=== PATIENT | female | born 1965 | race Caucasian/White ===

== ENCOUNTER → 2016-09-12 | Outpatient (CLI) | payer OTHER | LOC: KOH-I 13:04 | DX: E78.5 Hyperlipidemia, unspecified (principal); I65.23 Occlusion and stenosis of bilateral carotid arteries | CPT/HCPCS: 93880 ==

== ENCOUNTER 2020-09-17 12:34 | Inpatient (IN) | payer OTHER ==
[~2020-09-17] VITALS: Ht 162.6 cm; Wt 81.6 kg
[2020-09-17 13:20] LABS: HEMOGLOBIN 13.8 gm/dl (12.3-15.3); RED BLOOD COUNT 4.43 M/UL (4.00-5.10); WHITE BLOOD COUNT 5.8 K/UL (4.5-11.0)
[2020-09-17 13:41] LABS: BUN/CREATININE RATIO 10 (0-10)
[2020-09-17] MEDS ORDERED: GLUCOTROL5 MG PO (16:37)
[2020-09-17] MEDS ORDERED: LISINOPRIL-HCT1 EACH PO (16:38)
[2020-09-17] MEDS ORDERED: PROAIR HFA8.5 GM INH (16:39)
[2020-09-17] MEDS ORDERED: PROCTOCREAM-HC30 G1 TOP (16:41)
[2020-09-17] MEDS ORDERED: VITAMIN D3125 MCG PO (16:41)
[2020-09-17] MEDS ORDERED: HORMONE TOP (16:53)
[2020-09-17] MEDS ORDERED: LIPITOR20 MG PO (16:56)
[2020-09-18 04:07] LABS: HEMOGLOBIN 12.4 gm/dl (12.3-15.3); WHITE BLOOD COUNT 5.1 K/UL (4.5-11.0)
[2020-09-18 04:29] LABS: BUN/CREATININE RATIO 13 (0-10)
[2020-09-19 04:26] LABS: HEMOGLOBIN 11.8 gm/dl (12.3-15.3); RED BLOOD COUNT 3.81 M/UL (4.00-5.10)
[2020-09-19 04:48] LABS: BUN/CREATININE RATIO 12 (0-10)
[2020-09-19 04:53] LABS: WHITE BLOOD COUNT 3.1 K/UL (4.5-11.0)
[2020-09-20 04:11] LABS: HEMOGLOBIN 10.7 gm/dl (12.3-15.3); RED BLOOD COUNT 3.47 M/UL (4.00-5.10); WHITE BLOOD COUNT 3.4 K/UL (4.5-11.0)
[2020-09-20 04:52] LABS: BUN/CREATININE RATIO 12 (0-10)
[2020-09-21 05:04] LABS: HEMOGLOBIN 10.6 gm/dl (12.3-15.3); RED BLOOD COUNT 3.51 M/UL (4.00-5.10)
[2020-09-21 05:09] LABS: WHITE BLOOD COUNT 4.8 K/UL (4.5-11.0)
[2020-09-21 05:25] LABS: BUN/CREATININE RATIO 8 (0-10)
[2020-09-21] MEDS ORDERED: DOXYCYCLINE HY100 MG PO (13:48)
[2020-09-21] MEDS ORDERED: FLORASTOR250 MG PO (13:48)
[2020-09-22 04:10] LABS: HBSAG SCREEN Negative (Negative); HEP A AB, IGM Negative (Negative); HEP B CORE AB, IGM Negative (Negative); HEP C VIRUS AB <0.1 (0.0-0.9)
[2020-09-22] MEDS ORDERED: ERTAPENEM1 GM IV (10:39)
--- NOTE | 2020-09-22 13:18 | NUR ---
INSTRUCTED PATIENT TAKE SCRIPT TO INFUSION IN OUTPATIENT. GET IV ANTIBIOTICS ORDERED. VERBALIZED UNDERSTANDING. CHIQUI ROLAND R.N.
== END 2020-09-22 13:35 | disposition home or self-care (01) | DRG 872 ==
LOC: ER1 12:34 → M/S 15:12 → CDU 15:12 → M/S 15:12
PROVIDERS: Physician Assistant; Physician Assistant Medical; ADMIT Internal Medicine
DX: A41.89 Other specified sepsis (principal); E87.1 Hypo-osmolality and hyponatremia; N39.0 Urinary tract infection, site not specified; D61.818 Other pancytopenia; Z20.822 Contact with and (suspected) exposure to COVID-19; E87.2 Acidosis; A93.8 Other specified arthropod-borne viral fevers; R09.89 Other specified symptoms and signs involving the circulatory and respiratory systems; B97.89 Other viral agents as the cause of diseases classified elsewhere; B96.89 Other specified bacterial agents as the cause of diseases classified elsewhere; E78.5 Hyperlipidemia, unspecified; R25.2 Cramp and spasm; E55.9 Vitamin D deficiency, unspecified; E11.9 Type 2 diabetes mellitus without complications; I10 Essential (primary) hypertension; K59.00 Constipation, unspecified; D69.6 Thrombocytopenia, unspecified; R74.01 Elevation of levels of liver transaminase levels; E04.1 Nontoxic single thyroid nodule; Z79.4 Long term (current) use of insulin; Z88.0 Allergy status to penicillin; Z88.8 Allergy status to other drugs, medicaments and biological substances; Z83.3 Family history of diabetes mellitus
CPT/HCPCS: ECHO; 0240U; 36415; 71045; 80048; 80053; 80074; 81001; 82962; 83036; 83605; 83615; 83735; 84132; 84439; 84443; 85025; 85027; 85045; 85379; 85384; 85652; 86140; 87040; 87077; 87086; 87186; 93306; 94640; 94664; 94760; 96365; 96375; 96376; 99285; G0378; J0456; J0692; J0696; J1335; J2185; J2405; J7030; Q9967

== ENCOUNTER → 2020-09-23 | Outpatient (CLI) | payer OTHER ==
[~2020-09-23] VITALS: Ht 162.6 cm; Wt 81.6 kg
[~2020-09-23] MED LIST: DOXYCYCLINE HY100 MG PO; ERTAPENEM1 GM IV; FLORASTOR250 MG PO; GLUCOTROL5 MG PO; HORMONE TOP; LIPITOR20 MG PO; LISINOPRIL-HCT1 EACH PO; PROAIR HFA8.5 GM INH; PROCTOCREAM-HC30 G1 TOP; VITAMIN D3125 MCG PO
== END ==
LOC: OPSV 07:46
DX: N39.0 Urinary tract infection, site not specified (principal); B96.89 Other specified bacterial agents as the cause of diseases classified elsewhere
CPT/HCPCS: 96372; J1335

== ENCOUNTER → 2020-09-24 | Outpatient (CLI) | payer OTHER ==
[~2020-09-24] VITALS: Ht 162.6 cm; Wt 81.6 kg
== END ==
LOC: OPSV 08:03
DX: N39.0 Urinary tract infection, site not specified (principal); B95.2 Enterococcus as the cause of diseases classified elsewhere
CPT/HCPCS: 96372; J1335

== ENCOUNTER → 2020-09-25 | Outpatient (CLI) | payer OTHER ==
[~2020-09-25] VITALS: Ht 162.6 cm; Wt 81.6 kg
== END ==
LOC: OPSV 08:00
DX: N39.0 Urinary tract infection, site not specified (principal); B96.89 Other specified bacterial agents as the cause of diseases classified elsewhere
CPT/HCPCS: 96372; J1335

== ENCOUNTER → 2020-09-26 | Outpatient (CLI) | payer OTHER ==
[~2020-09-26] VITALS: Ht 162.6 cm; Wt 81.6 kg
== END ==
LOC: OPSV 08:00
DX: N39.0 Urinary tract infection, site not specified (principal)
CPT/HCPCS: 96372; J1335

== ENCOUNTER → 2020-09-27 | Outpatient (CLI) | payer OTHER ==
[~2020-09-27] VITALS: Ht 162.6 cm; Wt 81.6 kg
== END ==
LOC: OPSV 08:00
DX: N39.0 Urinary tract infection, site not specified (principal); B95.2 Enterococcus as the cause of diseases classified elsewhere
CPT/HCPCS: 96372; J1335

== ENCOUNTER → 2020-10-22 | Outpatient (CLI) | payer OTHER | LOC: US 13:24 | DX: E04.1 Nontoxic single thyroid nodule (principal) | CPT/HCPCS: 76536 ==

== ENCOUNTER → 2021-04-22 | Outpatient (CLI) | payer OTHER | LOC: CT 13:00 | DX: R91.1 Solitary pulmonary nodule (principal); K76.0 Fatty (change of) liver, not elsewhere classified | CPT/HCPCS: 36415; 71260; 82565; Q9967 ==